=== PATIENT | female | born 1985 | race Caucasian/White ===

== ENCOUNTER 2019-05-31 20:03 | Emergency (ER) | payer MEDICAID ==
[~2019-05-31] VITALS: Ht 172.7 cm; Wt 59.1 kg
[2019-05-31 20:08] VITALS: Ht 172.7 cm; Wt 59.1 kg
[2019-05-31] MEDS ORDERED: CARAFATE1 G PO (20:08)
[2019-05-31] MEDS ORDERED: HYDROCODON-ACE1 EA10 (20:08)
[2019-05-31] MEDS ORDERED: PROTONIX20 MG PO (20:08)
[2019-05-31] MEDS ORDERED: REGLAN10 MG PO (20:08)
[2019-05-31] MEDS ORDERED: KLONOPIN0.5 MG (20:08)
[2019-05-31 20:24] LABS: APPEARANCE CLEAR (CLEAR); BILIRUBIN NEGATIVE (NEGATIVE); COLOR YELLOW (YELLOW); GLUCOSE NEGATIVE (NEGATIVE); KETONE NEGATIVE (NEGATIVE); NITRITE NEGATIVE (NEGATIVE); PROTEIN TRACE mg/dL (NEGATIVE); SPECIFIC GRAVITY 1.015 (1.005-1.020); UROBILINOGEN NORMAL (NORMAL)
[2019-05-31 20:26] LABS: BACTERIA FEW /hpf (NONE SEEN); EPITHELIAL CELLS 0-5 /hpf (0-5); RED CELLS - URINE 0-5 /hpf (0-5)
[2019-05-31 20:28] LABS: HCG URINE NEGATIVE (NEGATIVE); MUCUS <1+ /lpf (NONE SEEN)
[2019-05-31] MEDS ORDERED: TORADOL10 MG PO (21:21)
[2019-05-31 22:35] VITALS: BP 131/69
[2019-06-02 21:06] LABS: CHLAMYDIA TRACHOMATIS, NAA Negative (Negative)
== END 2019-05-31 22:35 | disposition home or self-care (01) ==
LOC: D.ER 20:03
PROVIDERS: Family Medicine
DX: S40.012A Contusion of left shoulder, initial encounter (principal); V43.52XA Car driver injured in collision with other type car in traffic accident, initial encounter; Y93.89 Activity, other specified; Y92.410 Unspecified street and highway as the place of occurrence of the external cause; R51 Headache; M25.552 Pain in left hip; M54.5 Low back pain; S16.1XXA Strain of muscle, fascia and tendon at neck level, initial encounter; A59.9 Trichomoniasis, unspecified

== ENCOUNTER 2019-09-23 15:26 | Emergency (ER) | payer MEDICAID ==
[~2019-09-23] VITALS: Ht 172.7 cm; Wt 59.1 kg
[~2019-09-23 15:26] MED LIST: CARAFATE1 G PO; HYDROCODON-ACE1 EA10; KLONOPIN0.5 MG PO; PROTONIX20 MG PO; REGLAN10 MG PO; TORADOL10 MG PO
[2019-09-23 15:52] VITALS: Ht 172.7 cm; Wt 59.1 kg
[2019-09-23 16:17] LABS: EOSINOPHILS 6.2 % (0-7); HEMATOCRIT 36.5 % (36.0-48.0); HEMOGLOBIN 10.9 g/dL (12-16); IMMATURE GRANULOCYTES 0.1 % (0-5); LYMPHOCYTES 34.5 % (15-50); MCH 25.3 pg (26.0-34.0); MCHC 29.9 g/dL (31.0-37.0); MCV 84.7 fL (80.0-100.0); MEAN PLATELET VOLUME 8.8 fL (7.4-10.4); MONOCYTES 11.5 % (2-11); NEUTROPHILS 46.7 % (40-80); RBC 4.31 10x6/uL (4.00-5.40); RDW 17.1 % (11.5-14.5); WBC 7.1 10x3/uL (4.8-10.8)
[2019-09-23 16:30] LABS: CALC OSMOLALITY 274 mosm/kg (275-300); CALCIUM 8.4 mg/dL (8.5-10.1); CARBON DIOXIDE 28.5 mmol/L (21.0-32.0); CHLORIDE - SERUM 101 mmol/L (98-107); CREATININE - SERUM 0.8 mg/dL (0.6-1.3); POTASSIUM - SERUM 3.1 mmol/L (3.5-5.1); SODIUM 140 mmol/L (136-145); UREA NITROGEN 6 mg/dL (7-18); eGFR NON AFRICAN AMERICAN 86 mL/min (90-120)
[2019-09-23 16:31] LABS: GLUCOSE 62 mg/dL (74-106)
[2019-09-23 16:33] LABS: PLATELET COUNT 447 10x3/uL (130-400)
[2019-09-23 16:34] LABS: APPEARANCE CLEAR (CLEAR); BILIRUBIN NEGATIVE (NEGATIVE); COLOR YELLOW (YELLOW); GLUCOSE NEGATIVE (NEGATIVE); KETONE NEGATIVE (NEGATIVE); NITRITE NEGATIVE (NEGATIVE); PROTEIN NEGATIVE (NEGATIVE); UROBILINOGEN NORMAL (NORMAL)
[2019-09-23 16:35] LABS: BACTERIA FEW /hpf (NEGATIVE); EPITHELIAL CELLS 0-5 /hpf (0-5); RED CELLS - URINE OCC /hpf (0-5); WHITE CELLS - URINE 0-5 /hpf (NEGATIVE)
[2019-09-23 16:39] LABS: ALKALINE PHOSPHATASE 91 U/L (46-116); ALT (SGPT) 26 U/L (10-68); AMYLASE - SERUM 83 U/L (25-115); BILIRUBIN - TOTAL 0.26 mg/dL (0.2-1.3); LIPASE 176 U/L (73-393); PROTEIN - SERUM 8.4 g/dL (6.4-8.2)
[2019-09-23 16:43] LABS: TROPONIN-I < 0.017 ng/mL (0.000-0.060)
[2019-09-23] MEDS ORDERED: TIGAN300 MG PO (22:28)
[2019-09-23] MEDS ORDERED: BENTYL 20 MG TA20 MG PO (22:28)
[2019-09-23] MEDS ORDERED: MACROBID100 MG PO (22:28)
[2019-09-23 22:55] VITALS: BP 122/81
[2019-10-18] MEDS ORDERED: PHENERGAN25 M1 PO (19:24)
[2019-10-18] MEDS ORDERED: DOXYCYCLINE HY100 M2 PO (20:30)
== END 2019-09-23 22:46 | disposition home or self-care (01) ==
LOC: D.ER 15:26
PROVIDERS: Family Medicine
DX: N39.0 Urinary tract infection, site not specified (principal); R11.2 Nausea with vomiting, unspecified; R10.9 Unspecified abdominal pain; G89.29 Other chronic pain; K31.84 Gastroparesis; K21.9 Gastro-esophageal reflux disease without esophagitis

== ENCOUNTER → 2019-10-18 | Emergency (ER) | payer MEDICAID ==
[~2019-10-18] VITALS: Ht 172.7 cm; Wt 59.1 kg
[~2019-10-18] MED LIST changes: +BENTYL 20 MG TA20 MG PO; +DOXYCYCLINE HY100 M2 PO; +MACROBID100 MG PO; +PHENERGAN25 M1 PO; +TIGAN300 MG PO
[2019-10-18 19:23] VITALS: BP 126/81; Ht 172.7 cm; Wt 59.1 kg
[2019-10-18 20:07] LABS: CALC OSMOLALITY 275 mosm/kg (275-300); CARBON DIOXIDE 31.8 mmol/L (21.0-32.0); CHLORIDE - SERUM 104 mmol/L (98-107); CREATININE - SERUM 0.7 mg/dL (0.6-1.3); GLUCOSE 88 mg/dL (74-106); SODIUM 140 mmol/L (136-145); UREA NITROGEN 8 mg/dL (7-18); eGFR NON AFRICAN AMERICAN > 90 mL/min (90-120)
[2019-10-18 20:13] LABS: BASOPHILS 0.8 % (0-2); EOSINOPHILS 4.2 % (0-7); HEMOGLOBIN 10.1 g/dL (12-16); IMMATURE GRANULOCYTES 0.1 % (0-5); LYMPHOCYTES 32.9 % (15-50); MCH 24.8 pg (26.0-34.0); MCHC 29.7 g/dL (31.0-37.0); MCV 83.3 fL (80.0-100.0); MEAN PLATELET VOLUME 9.1 fL (7.4-10.4); MONOCYTES 8.5 % (2-11); NEUTROPHILS 53.5 % (40-80); PLATELET COUNT 401 10x3/uL (130-400); RBC 4.08 10x6/uL (4.00-5.40); RDW 17.5 % (11.5-14.5); WBC 7.6 10x3/uL (4.8-10.8)
[2019-10-18 20:14] LABS: ALBUMIN 3.6 g/dL (3.4-5.0); ALKALINE PHOSPHATASE 82 U/L (46-116); ALT (SGPT) 15 U/L (10-68); BILIRUBIN - TOTAL 0.17 mg/dL (0.2-1.3); PROTEIN - SERUM 7.5 g/dL (6.4-8.2)
[2019-10-18 20:34] LABS: APPEARANCE CLEAR (CLEAR); BILIRUBIN NEGATIVE (NEGATIVE); COLOR STRAW (YELLOW); GLUCOSE NEGATIVE (NEGATIVE); KETONE NEGATIVE (NEGATIVE); NITRITE NEGATIVE (NEGATIVE); PROTEIN NEGATIVE (NEGATIVE); SPECIFIC GRAVITY 1.005 (1.005-1.020); UROBILINOGEN NORMAL (NORMAL)
[2019-10-18 20:36] LABS: BACTERIA FEW /hpf (NEGATIVE); EPITHELIAL CELLS 0-5 /hpf (0-5); RED CELLS - URINE 0-5 /hpf (0-5); WHITE CELLS - URINE 0-5 /hpf (NEGATIVE)
[2019-10-18 20:37] LABS: HCG URINE NEGATIVE (NEGATIVE); YEAST <1+ /hpf (NONE SEEN)
== END | disposition home or self-care (01) ==
LOC: D.ER 19:18
PROVIDERS: Emergency Medicine
DX: Z20.2 Contact with and (suspected) exposure to infections with a predominantly sexual mode of transmission (principal); L02.413 Cutaneous abscess of right upper limb; N89.8 Other specified noninflammatory disorders of vagina

== ENCOUNTER 2019-12-11 19:29 | Emergency (ER) | payer MEDICAID ==
[~2019-12-11] VITALS: Ht 172.7 cm; Wt 59.1 kg
[2019-12-11 19:45] VITALS: BP 140/83; Ht 172.7 cm; Wt 59.1 kg
[2019-12-11 20:12] LABS: APPEARANCE CLEAR (CLEAR); COLOR YELLOW (YELLOW); NITRITE NEGATIVE (NEGATIVE)
[2019-12-11 20:13] LABS: BILIRUBIN NEGATIVE (NEGATIVE); GLUCOSE NEGATIVE (NEGATIVE); KETONE NEGATIVE (NEGATIVE); PROTEIN TRACE mg/dL (NEGATIVE); UROBILINOGEN NORMAL (NORMAL)
[2019-12-11] MEDS ORDERED: MUPIROCIN22 GM TOPICAL (21:17)
== END 2019-12-11 21:25 | disposition home or self-care (01) ==
LOC: D.ER 19:29
PROVIDERS: Family Medicine
DX: R21 Rash and other nonspecific skin eruption (principal); F41.9 Anxiety disorder, unspecified; Z02.89 Encounter for other administrative examinations